=== PATIENT | female | born 1940 | race Caucasian/White ===

== ENCOUNTER 2022-12-29 16:59 | Emergency (ER) | payer MEDICARE, OTHER, SELFPAY ==
[2022-12-29 17:01] VITALS: BP 186/102; PULSE 60; RESP 14; TEMP 36.2; O2SAT 100; BMI 21.7
--- NOTE | 2022-12-29 18:57 | EDS_ITS ---
HPI History of Present Illness Chief Complaint: Hypertension Narrative Narrative: Patient presents with no complaints. She had a routine outpatient appointment today and was found to be hypertensive in the doctor's office. Upon his review of systems, apparently patient did have a syncopal episode over a week ago. She has no chest pain. She has no shortness of breath. She has no headache or head injury. She feels back to baseline. No known seizure-like activity. She has no DVT or PE risk factors. She has no abdominal pain or back pain [facility] Medical History (Updated 12/29/22 @ 20:[address] Vu Cochran MD) Bradycardia Home Medications acetaminophen 500 mg tablet (Tylenol Extra Strength) 1,000 mg PO BID 12/29/22 [History Last Taken Unknown] alendronate 70 mg tablet 70 mg PO QWEEK 12/29/22 [History Last Taken Unknown] atorvastatin 40 mg tablet 40 mg PO DAILY 12/29/22 [History Last Taken Unknown] calcium citrate-vitamin D3 125 mg-62.5 unit tablet 1 tab PO DAILY 12/29/22 [History Last Taken Unknown] cholecalciferol (vitamin D3) 25 mcg (1,000 unit) capsule (Vitamin D3) 25 mcg PO DAILY 12/29/22 [History Last Taken Unknown] cyanocobalamin (B12)-cobamamide 5,000 mcg-100 mcg sublingual lozenge (B12) 1 bella sublingual DAILY 12/29/22 [History Last Taken Unknown] hydralazine 25 mg tablet 25 mg PO TID 12/29/22 [History Last Taken Unknown] hydrochlorothiazide 25 mg tablet 25 mg PO DAILY 12/29/22 [History Last Taken Unknown] levothyroxine 50 mcg tablet 50 mcg PO DAILY 12/29/22 [History Last Taken Unknown] losartan 100 mg tablet 100 mg PO DAILY 12/29/22 [History Last Taken Unknown] meloxicam 15 mg tablet 15 mg PO DAILY 12/29/22 [History Last Taken Unknown] metoprolol tartrate 25 mg tablet 12.5 mg PO BID 12/29/22 [History Last Taken Unknown] multivit with kzorotnk-[id number]-JP-lutein 8 mg iron-400 mcg-300 mcg tablet (Centrum Silver Women) 1 tab PO DAILY 12/29/22 [History Last Taken Unknown] turmeric 500 mg-black pepper extract 3 mg capsule 1 cap PO DAILY 12/29/22 [History Last Taken Unknown] Allergy/AdvReac Type Severity Reaction Status Date / Time amlodipine [From [facility]] Allergy Other Verified 12/29/22 17:01 prochlorperazine Allergy Angioedema Verified 12/29/22 17:01 [From Compazine] Social History Smoking Status: Never smoker ROS ROS ED ROS Narrative Past medical history: Reviewed Medications: Reviewed Social history: Noncontributory Review of systems: All systems negative except as indicated General: No fever Eyes: No visual changes ENT: No upper airway congestion, normal voice Neck: No neck pain Cardiovascular: No chest pain. Otherwise what seems to be a syncopal episode 1 week ago Respiratory: No shortness of breath or cough Gastrointestinal: No abdominal pain, nausea vomiting or diarrhea Genitourinary: No dysuria Musculoskeletal: Denies myalgias no difficulty with ambulation Skin: No rash Neurological: No memory loss, confusion or any focal weakness Psych: No recent behavioral changes Hematologic: No easy bleeding or easy bruising EXAM Physical Exam Narrative Exam Narrative: Physical exam General: Well nourished, Well developed, No Acute Distress Head: Normocephalic, Atraumatic Eyes: Conjunctiva not pale ENT: Moist mucous membranes Neck: Supple, Nontender, No lymphadenopathy Cardiovascular: Regular rate, Regular rhythm Respiratory: No distress, CTA bilaterally Abdomen: Soft, Nontender, Nondistended Back: Nontender, Normal Inspection. Negative for: CVA tenderness Extremities: Nontender, No edema Skin: Normal color, No rash Neurological: Alert, Normal Strength, Normal Sensation Psychological: Normal affect Const Vital Signs: 12/29/22 17:01 12/29/22 19:32 Temperature 97.2 F L Temperature Source Temporal Pulse Rate 60 56 L Respiratory Rate 14 16 Blood Pressure 186/102 H 167/70 H Blood Pressure Mean 130 102 Pulse Ox 100 99 Oxygen Delivery Method Room Air Room Air [facility] Lab Data Labs: Laboratory Results - last 24 hr 12/29/22 12/29/22 19:15 19:15 WBC 5.4 RBC 3.53 L Hgb 11.6 L Hct 34.8 L MCV 98.6 MCH 32.9 H MCHC 33.3 RDW Std Deviation 44.5 H RDW Coeff of Allen 12.4 Plt Count 300 MPV 10.1 Immature Gran % (Auto) 0.200 Neut % (Auto) 62.5 Lymph % (Auto) 24.7 Waller % (Auto) 8.0 Eos % (Auto) 3.5 Baso % (Auto) 1.1 H Absolute Neuts (auto) 3.4 Absolute Lymphs (auto) 1.33 Nucleated RBC % 0 Sodium 132 L Potassium 4.0 Chloride 95 L Carbon Dioxide 28.0 Anion Gap 9 BUN 21 H Creatinine 0.99 Estim Creat Clear Calc 30.93 Est GFR (MDRD) Af Amer 69 Est GFR (MDRD) Non-Af 57 L BUN/Creatinine Ratio 21.3 H Glucose 101 Calcium 9.5 Total Bilirubin 0.70 AST 30 ALT 38 Alkaline Phosphatase 58 Troponin I High Sens 8 Total Protein 7.7 Albumin 4.2 Globulin 3.5 Albumin/Globulin Ratio 1.2 EKG Initial EKG: Comments: Sinus rhythm with a rate of 51. Normal VA and QTc intervals. No ischemic changes. Otherwise normal EKG Interpreted by emergency doctor Treatment and Re-Evaluation Narrative: A. Problems addressed. Patient is found to be hypertensive. However after repeat blood pressure she is now 167/70 therefore no treatment was administered in the emergency department initially had thought about doubling up on one of her home medications. She has a normal EKG she appears well. I told her to check her blood pressure at home if anything changes she is to return. I thought about cardiac etiology however I was able to rule that out. I also thought about liver or renal etiology for her blood pressure and these are ruled out. She has no headache or vision changes to be worried about his CVA. She is aware all this and we will discharge. B. Amount and/or complexity of the data 1. I talked to the son who is in the room. CBC and CMP were ordered and interpreted by me 2. Independent interpretation of test Telemetry: Sinus rhythm with a rate in the 50s C. Risk of complications and/or morbidity Differential diagnosis: See above Discharge Plan Triage Chief Complaint: Hypertension ED Provider: Vu Cochran Dx/Rx/DC Orders Clinical Impression: Hypertension, No problem, feared complaint unfounded Instructions: Blood Pressure Check Steps Prescriptions: No Action atorvastatin 40 mg Tablet 40 mg PO DAILY meloxicam 15 mg Tablet 15 mg PO DAILY alendronate 70 mg Tablet 70 mg PO QWEEK hydralazine 25 mg Tablet 25 mg PO TID levothyroxine 50 mcg Tablet 50 mcg PO DAILY hydrochlorothiazide 25 mg Tablet 25 mg PO DAILY losartan 100 mg Tablet 100 mg PO DAILY cholecalciferol (vitamin D3) [Vitamin D3] 25 mcg (1,000 unit) Capsule 25 mcg PO DAILY calcium citrate-vitamin D3 125-62.5 mg-unit Tablet 1 tab PO DAILY metoprolol tartrate 25 mg Tablet 12.5 mg PO BID B12 5,000-100 mcg Lozenge 1 bella SUBLINGUAL DAILY Centrum Silver Women 8 mg iron-400 mcg-300 mcg Tablet 1 tab PO DAILY turmeric-turmeric ext-pepper 500-3 mg Capsule 1 cap PO DAILY acetaminophen [Tylenol Extra Strength] 500 mg Tablet 1,000 mg PO BID Primary Care Provider: Musa Sequeira Referrals: Musa Sequeira MD [Primary Care Provider] - 3-5 Days Disposition Disposition: Home, Self Care
[2022-12-29 19:22] LABS: Absolute Lymphocyte Count 1.33 X10^3/uL (0.83-4.51); Absolute Neutrophil Count 3.4 X10^3/uL (2.0-7.7); Basophil# 0.06 X10^3/uL; Basophil% 1.1 % (0-1); Eosinophil# 0.19 X10^3/uL; Eosinophils% 3.5 % (0-5); Hematocrit 34.8 % (37-47); Hemoglobin 11.6 g/dL (12.0-15.0); Lymphocyte # 1.33 X10^3/ul (0.83-4.51); Lymphocyte % 24.7 % (19-41); Mean Corp Hgb Conc 33.3 g/dL (32-36); Mean Corpuscular Hgb 32.9 pg (27.0-32.0); Mean Corpuscular Volume 98.6 fL (81-99); Mean Platelet Vol. 10.1 fl (6.2-12.0); Monocyte# 0.43 X10^3/uL; NRBC Flagged by Analyzer 0 % (0-5); Neutrophil # 3.36 X10^3/uL (2.7-7.7); Neutrophil % 62.5 % (47-70); Platelet Count 300 K/mm3 (150-450); RBC Distribution Width CV 12.4 % (11.6-14.6); RBC Distribution Width SD 44.5 fl (35.1-43.9); Red Blood Count 3.53 M/mm3 (4.2-5.4); White Blood Count 5.4 K/mm3 (4.4-11.0)
[2022-12-29 19:32] VITALS: BP 167/70; PULSE 56; RESP 16; O2SAT 99
[2022-12-29 19:39] LABS: ALB/GLOB Ratio 1.2 RATIO (0.9-2.4); AST(SGOT) 30 U/L (15-37); Alanine Aminotransfer ALT/SGPT 38 U/L (13-56); Albumin, Serum 4.2 g/dL (3.2-5.0); Alkaline Phosphatase 58 U/L (45-117); Anion Gap 9 (5-15); BUN 21 mg/dL (7-18); BUN/Creat Ratio 21.3 RATIO (10-20); Calcium,Total 9.5 mg/dL (8.5-10.1); Chloride 95 mmol/L (98-107); Creatinine, Serum 0.99 mg/dL (0.55-1.02); EST Glomerular Filtration Rate 57 mL/min (>60); Est Glom Filt Rate - Afr Amer 69 mL/min (>60); Estimated Creatinine Clearance 30.93 ml/min; Globulin 3.5 g/dL (2.2-4.2); Glucose 101 mg/dL (74-106); Protein, Total 7.7 g/dL (6.4-8.2); Sodium Level 132 mmol/L (136-145); Troponin-I HS 8 pg/mL (3.0-54.0)
[2022-12-29 20:36] VITALS: BP 149/73; PULSE 57; RESP 18; O2SAT 96
== END 2022-12-29 20:37 | disposition home or self-care (01) ==
PROVIDERS: Emergency Provider Emergency Medicine; PCP Family Medicine; Visit Provider Emergency Medicine
DX: I10 Essential (primary) hypertension (principal); Z71.1 Person with feared health complaint in whom no diagnosis is made
CPT/HCPCS: 80053; 84484; 85025; 93005; 99284; A4216